=== PATIENT | male | born 2005 | race Caucasian/White ===

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

== ENCOUNTER → 2023-11-25 | Outpatient (CLI) | payer BC ==
--- NOTE | 2023-11-26 11:14 | CA ---
Transthoracic Echo Report Name: Derek Pink Age: 18 Gender: M : 2005 Exam Date: 11/25/2023 14:10 Exam Location: [facility] Ht (in): 69 Wt (lb): 156 Ordering Physician: Jaron Aguilar MD Attending/Referring Phys: Administrative Nursing Supervisor Rachel Emerson RDCS Procedure CPT: Indications: I10 Essential Hypertension Cardiac Hx: Technical Quality: Fair Contrast 1: Total Dose (mL): Contrast 2: Total Dose (mL): MEASUREMENTS (Male / Female) Normal Values 2D ECHO LV Diastolic Diameter PLAX 4.1 cm 4.2 - 5.9 / 3.9 - 5.3 cm LV Systolic Diameter PLAX 2.8 cm IVS Diastolic Thickness 0.8 cm 0.6 - 1.0 / 0.6 - 0.9 cm LVPW Diastolic Thickness 0.8 cm 0.6 - 1.0 / 0.6 - 0.9 cm LV Relative Wall Thickness 0.4 LVOT Diameter 2.2 cm LV Diastolic Volume MOD BP 106.6 cm??? 67 - 155 / 56 - 104 cm??? LV Systolic Volume MOD BP 41.4 cm??? 22 - 58 / 19 - 49 cm??? LV Ejection Fraction MOD BP 61.2 % >= 55 % LV Cardiac Index MOD BP 3193.1 cm???/min???m??? LV Diastolic Volume MOD 4C 103.6 cm??? LV Systolic Volume MOD 4C 43.2 cm??? LV Ejection Fraction MOD 4C 58.3 % LV Cardiac Index MOD 4C 2956.2 cm???/min???m??? LV Diastolic Length 4C 9.4 cm LV Systolic Length 4C 7.5 cm LV Diastolic Volume MOD 2C 106.5 cm??? LV Systolic Volume MOD 2C 38.4 cm??? LV Ejection Fraction MOD 2C 63.9 % LV Cardiac Index MOD 2C 3334.8 cm???/min???m??? LV Diastolic Length 2C 9.2 cm LV Systolic Length 2C 7.2 cm LA Volume 40.6 cm??? 18 - 58 / 22 - 52 cm??? LA Volume Index 21.8 cm???/m??? 16 - 28 cm???/m??? Ascending Aorta Diameter 2.8 cm DOPPLER AV Peak Velocity 130.4 cm/s AV Peak Gradient 6.8 mmHg AV Mean Velocity 92.5 cm/s AV Mean Gradient 3.8 mmHg AV Velocity Time Integral 24.3 cm LVOT Peak Velocity 126.7 cm/s LVOT Peak Gradient 6.4 mmHg LVOT Velocity Time Integral 22.3 cm LVOT Stroke Volume 83.4 cm??? LVOT Stroke Volume Index 44.9 ml/m??? LVOT Cardiac Index 4083.3 cm???/min???m??? AV Area Cont Eq vti 3.4 cm??? AV Area Cont Eq pk 3.6 cm??? MV Area PHT 5.0 cm??? Mitral E Point Velocity 56.4 cm/s Mitral A Point Velocity 49.4 cm/s Mitral E to A Ratio 1.1 MV Deceleration Time 151.7 ms PV Peak Velocity 106.0 cm/s PV Peak Gradient 4.5 mmHg FINDINGS Left Ventricle Left ventricular ejection fraction is estimated at 55-60 %. Left ventricular cavity size normal. Left ventricular wall thickness normal. No obvious regional wall motion abnormalities. Right Ventricle Normal right ventricular size and function. Unable to estimate the right ventricular systolic pressure. Right Atrium Normal right atrial size. Left Atrium Normal left atrial size. Mitral Valve Structurally normal mitral valve. No evidence for mitral valve prolapse. No mitral stenosis. No mitral regurgitation. Aortic Valve Trileaflet aortic valve. No aortic valve stenosis or regurgitation. Tricuspid Valve Structurally normal tricuspid valve. No tricuspid stenosis. No tricuspid regurgitation. Pulmonic Valve Structurally normal pulmonic valve. No pulmonic stenosis. No pulmonic regurgitation. Pericardium No pericardial effusion. Aorta Normal size aortic root and proximal ascending aorta. CONCLUSIONS Normal LV size and systolic function. No significant abnormality in the Doppler exam. No Pericardial effusion Previewed by: Dr. Lara Beauchamp MD (Electronically Signed) Final Date: 26 November 2023 11:13
== END | disposition home or self-care (01) ==
LOC: RADECHMAIN 14:07
PROVIDERS: ATTEND Internal Medicine Nephrology
DX: I10 Essential (primary) hypertension (principal)
CPT/HCPCS: 93306

== ENCOUNTER → 2024-07-14 | Outpatient (CLI) | payer BC ==
--- NOTE | 2024-07-14 09:52 | US ---
EXAMINATION TYPE: US pelvic limited DATE OF EXAM: 07/14/2024 COMPARISON: NONE CLINICAL INDICATION: Male, 18 years old with history of UNSPECIFIED ABDOMINAL PAIN R109; Hx Uncontrol led HTN - Renal Artery and bladder scan ordered; Left flank pain; Patient denies any other signs, sym ptoms, or relevant history TECHNIQUE: Multiple grayscale and color Doppler ultrasound images of the urinary bladder were obtain ed. FINDINGS/IMPRESSION: The urinary bladder is anechoic without mass identified. No wall thickening. Th e bilateral ureteral jets are identified. [facility], , 07/14/2024 9:50 AM
--- NOTE | 2024-07-14 11:50 | US ---
EXAMINATION TYPE: US renal artery duplex complet DATE OF EXAM: 07/14/2024 COMPARISON: NONE CLINICAL INDICATION: Male, 18 years old with history of UNSPECIFIED ABDOMINAL PAIN R109; Uncontrolled HTN x 1.5 years, on medications, BP still above 140; Left flank pain; Patient denies any other signs , symptoms, or relevant history TECHNIQUE: Grayscale, color Doppler and spectral Doppler imaging of the bilateral renal arteries and kidneys. FINDINGS: MEASUREMENTS: RENAL SIZE: Right Kidney: 10.1 x 5.8 x 5.8 cm Left Kidney: 10.9 x 5.5 x 5.2 cm Right Kidney: wnl Left Kidney: wnl Abd Aorta: No AAA visualized RESISTANCE INDEX Right: 0.64 Left: 0.71 RA/AO RATIO (< 3.5 ) Right: 0.6 Left: 0.6 RENAL ARTERY VELOCITY ( < 180 cm/s) Right: 103 Left: 93 Dust Mop Maker Notes: Appropriate color Doppler flow and spectral waveforms to the kidneys bilaterally. Grayscale imaging of the kidneys and show no evidence for hydronephrosis or mass. No renal calculi or cysts visualized. IMPRESSION: No evidence for renal artery stenosis bilaterally. [facility], , 07/14/2024 11:47 AM
== END | disposition home or self-care (01) ==
LOC: RADUSWWP 09:00
PROVIDERS: ATTEND Emergency Medicine
DX: R10.9 Unspecified abdominal pain (principal); I10 Essential (primary) hypertension
CPT/HCPCS: 76857; 93975